=== PATIENT | female | born 1945 | race Caucasian/White ===

== ENCOUNTER 2017-10-08 08:01 | Day surgery (SDC) | payer MEDICARE ==
[~2017-10-08] VITALS: Ht 170.2 cm; Wt 94.1 kg
[2017-10-08] MEDS ORDERED: SODIUM CHLORIDE 0.9% 1,000 ML IV SCH (08:39)
[2017-10-08 08:41] VITALS: BP 127/91
[2017-10-08] MEDS ORDERED: RISP0.253 PO (08:47)
[2017-10-08] MEDS ORDERED: TRAZ50TA18 PO (08:47)
[2017-10-08] MEDS ORDERED: RANI150C PO (08:47)
[2017-10-08] MEDS ORDERED: OMEP-110 PO (08:47)
[2017-10-08] MEDS ORDERED: MELO15TA24 PO (08:47)
[2017-10-08] MEDS ORDERED: MERC50TA17 PO (08:47)
[2017-10-08] MEDS ORDERED: SIMV40TA3 PO (08:47)
[2017-10-08] MEDS ORDERED: LIDOCAINE 2%, 10ML ONE (09:01)
[2017-10-08 09:25] LABS: INTERNATIONAL NORMALIZED RATIO 1.17 (0.93-1.1)
[2017-10-08] MEDS ORDERED: MIDAZOLAM 1 MG/ML, 5ML ONE (09:49)
[2017-10-08] MEDS ORDERED: FENTANYL PF 100 MCG/2ML ONE (09:49)
[2017-10-08] MEDS ORDERED: LIDOCAINE-MPF 1%, 5ML ONE (10:00)
== END 2017-10-08 11:35 ==
LOC: OUT 08:01
PROVIDERS: ATTEND Internal Medicine
DX: E80.6 Other disorders of bilirubin metabolism (principal); K50.00 Crohn's disease of small intestine without complications; K59.04 Chronic idiopathic constipation
CPT/HCPCS: 36415; 47000; 76942; 85610; 88307; 88313; 99156; 99157; J2250; J3010; J3490; J7030

== ENCOUNTER → 2017-11-20 | Outpatient (CLI) | payer MEDICARE ==
[~2017-11-20] MED LIST: ASPI-496 PO; CHOL200024 PO; MELO15TA24 PO; MERC50TA17 PO; OMEP-110 PO; RANI150C PO; RISP0.253 PO; SIMV40TA3 PO; TRAZ50TA18 PO
== END | disposition home or self-care (01) ==
LOC: STAR 13:33
PROVIDERS: ATTEND Internal Medicine
DX: Z01.818 Encounter for other preprocedural examination (principal); K80.50 Calculus of bile duct without cholangitis or cholecystitis without obstruction
CPT/HCPCS: 93005

== ENCOUNTER 2017-11-25 08:41 | Day surgery (SDC) | payer MEDICARE ==
[~2017-11-25] VITALS: Ht 170.2 cm; Wt 92.0 kg
[~2017-11-25 08:41] MED LIST changes: +FENTANYL PF 100 MCG/2ML ONE; +OXYcodone 5 MG/5 ML ORAL.SOL UDC ONE
[2017-11-25] MEDS ORDERED: LACTATED RINGERS 1,000 ML IV SCH (09:09)
[2017-11-25 09:31] VITALS: BP 131/83
[2017-11-25] MEDS ORDERED: FENTANYL PF 100 MCG/2ML ONE (10:22)
[2017-11-25] MEDS ORDERED: PROPOFOL 10 MG/ML, 20ML ONE (10:43)
[2017-11-25] MEDS ORDERED: SUCCINYLCHOLINE 20 MG/ML, 10ML ONE (10:43)
[2017-11-25] MEDS ORDERED: LACTATED RINGERS 1,000 ML ONE (10:43)
[2017-11-25] MEDS ORDERED: DEXAMETHASONE 4 MG/ML, 1ML ONE ×2 (10:56)
[2017-11-25] MEDS ORDERED: ONDANSETRON 2MG/ML, 2ML ONE (10:56)
[2017-11-25] MEDS ORDERED: MEPERIDINE/PF 25MG/0.5ML IVPush PRN (11:00)
[2017-11-25] MEDS ORDERED: ACETAMINOPHEN 325 MG TABLET PO PRN (11:00)
[2017-11-25] MEDS ORDERED: PROMETHAZINE 25 MG/ML, 1ML IV PRN (11:00)
[2017-11-25] MEDS ORDERED: FENTANYL PF 100 MCG/2ML IV PRN (11:00)
[2017-11-25] MEDS ORDERED: OXYcodone 5 MG/5 ML ORAL.SOL UDC PO PRN (11:00)
[2017-11-25] MEDS ORDERED: HYDROcodone/APAP 7.5-325MG/15ML UDC PO PRN (11:00)
[2017-11-25] MEDS ORDERED: ONDANSETRON ODT 8 MG PO PRN (11:00)
[2017-11-25] MEDS ORDERED: OMNIPAQUE 350 MG/ML, 50 ML BOTTLE ONE (11:28)
[2017-11-25] MEDS ORDERED: MEPERIDINE/PF 25MG/0.5ML ONE (12:11)
== END 2017-11-25 14:15 | disposition home or self-care (01) ==
LOC: OUT 08:41
PROVIDERS: ATTEND Internal Medicine
DX: K80.50 Calculus of bile duct without cholangitis or cholecystitis without obstruction (principal); K21.9 Gastro-esophageal reflux disease without esophagitis; F32.9 Major depressive disorder, single episode, unspecified; E78.5 Hyperlipidemia, unspecified; Z79.82 Long term (current) use of aspirin
CPT/HCPCS: 43264; 43274; 74328; C1769; J0330; J1100; J2175; J2405; J2704; J3010; J7120; Q9967

== ENCOUNTER → 2018-07-22 | Outpatient (CLI) | payer MEDICARE ==
[~2018-07-22] MED LIST changes: -FENTANYL PF 100 MCG/2ML ONE; -OXYcodone 5 MG/5 ML ORAL.SOL UDC ONE; -TRAZ50TA18 PO; +TRAZ50TA66 PO
== END | disposition home or self-care (01) ==
LOC: CFH 13:21
PROVIDERS: ATTEND Internal Medicine Cardiovascular Disease
DX: I08.3 Combined rheumatic disorders of mitral, aortic and tricuspid valves (principal); I48.91 Unspecified atrial fibrillation; E78.5 Hyperlipidemia, unspecified; Z79.01 Long term (current) use of anticoagulants
CPT/HCPCS: 93306

== ENCOUNTER → 2019-10-06 | Outpatient (CLI) | payer MEDICARE ==
[~2019-10-06] MED LIST changes: +REGADENOSON 0.4 MG/5 ML SYRINGE ONE; +SIMV40TA20 PO; -SIMV40TA3 PO
== END | disposition home or self-care (01) ==
LOC: CFH 12:32
PROVIDERS: ATTEND Internal Medicine Cardiovascular Disease
DX: R07.9 Chest pain, unspecified (principal); R94.31 Abnormal electrocardiogram [ECG] [EKG]
CPT/HCPCS: 78452; 93017; A9502; J2785

== ENCOUNTER → 2021-02-08 | Outpatient (CLI) | payer MEDICARE ==
[~2021-02-08] MED LIST changes: -REGADENOSON 0.4 MG/5 ML SYRINGE ONE
== END | disposition home or self-care (01) ==
LOC: CVU 14:05
PROVIDERS: ATTEND Internal Medicine Cardiovascular Disease
DX: I08.2 Rheumatic disorders of both aortic and tricuspid valves (principal); R94.31 Abnormal electrocardiogram [ECG] [EKG]
CPT/HCPCS: 93308; 93321; 93325